=== PATIENT | female | born 1995 | race Caucasian/White ===

== ENCOUNTER 2020-02-24 10:25 | Outpatient (CLI) | payer MEDICAID ==
--- NOTE | 2020-02-24 11:26 | ULT ---
Obstetrical ultrasound: 02/24/2020 COMPARISON: None HISTORY: 24-year-old female undergoing assessment of anatomy, size and dates TECHNIQUE: Multiplanar grayscale sonographic imaging of the gravid uterus obtained. FINDINGS: Cervical length is approximately 3.7 cm. The placenta is located posteriorly, with no evide nce for placental previa or abruption. The presentation is variable during this procedure. The stomach, kidneys, and four-chamber heart view appear unremarkable. Maternal adnexa not asse ssed on this exam. heart rate 136 bpm. The urinary bladder appears unremarkable. There is a 3 vessel cord noted. spine, intracra nial contents and nose/lips appear unremarkable. Amniotic fluid index is 16.4 cm. There is a lobulated portion of the placenta with an associated clef t. biometry: Biparietal diameter 6.2 cm 25 weeks 1 day Head circumference 22.2 cm 24 weeks 2 days Abdominal circumference 19.6 cm 24 weeks 2 days Femur length 4.3 cm 24 weeks 1 day Average age based on ultrasound is 24 weeks 4 days. Estimated date of delivery is 06/11/2020. Estimated weight 673 g +/- 98 g (3rd percentile). IMPRESSION: Single intrauterine gestation. estimated weight is at the 3rd percentile.
== END 2020-02-24 10:26 | disposition home or self-care (01) ==
LOC: BICULT 10:25
PROVIDERS: ATTEND Family Medicine
DX: Z34.02 Encounter for supervision of normal first pregnancy, second trimester (principal); Z3A.24 24 weeks gestation of pregnancy
CPT/HCPCS: 76805